=== PATIENT | female | born 1965 ===

== ENCOUNTER 2022-11-01 13:15 | Emergency (ER) | payer MEDICAID ==
[2022-11-01] MEDS ORDERED: Doxycycline 100 MG Cap ONE (13:55)
[2022-11-01 17:28] VITALS: BP 149/93; PULSE 101
== END 2022-11-01 14:00 | disposition home or self-care (01) ==
LOC: LB.ED 13:15
DX: J01.00 Acute maxillary sinusitis, unspecified (principal); Z79.899 Other long term (current) drug therapy
CPT/HCPCS: 99283; A9270

== ENCOUNTER 2022-11-02 22:07 | Emergency (ER) | payer MEDICAID ==
[2022-11-02] MEDS ORDERED: methylPREDNISolone Sodium Succinate 125 MG/2 ML SDV IM ONE (22:46)
[2022-11-02] MEDS ORDERED: methylPREDNISolone Sodium Succinate 125 MG/2 ML SDV ONE (22:47)
[2022-11-02] MEDS ORDERED: Sodium Chloride 0.9% 1,000 ML IV ONE ×2 (22:49→23:54)
[2022-11-02] MEDS ORDERED: methylPREDNISolone Sodium Succinate 125 MG/2 ML SDV IVPUSH ONE (22:49)
[2022-11-02] MEDS ORDERED: Sodium Chloride 0.9% 10 ML Syringe FLUSH PRN (23:09)
[2022-11-02] MEDS ORDERED: cefTRIAXone 2 GM in Sodium Chloride 0.9% 100 ML IV ONE (23:13)
[2022-11-02 23:14] LABS: ANION GAP 16.5 mmol/L (5.0-15.0); BUN/CREATININE RATIO 9.3 (6-25); CARBON DIOXIDE,CO2 26.5 mmol/L (21.0-32.0); CREATININE 0.75 mg/dL (0.55-1.02); EST CRCL DRUG DOSING (CG) 76.54 mL/min
[2022-11-02 23:15] LABS: BASOPHILS ABSOLUTE AUTO 0.04 K/uL (0.02-0.10); BASOPHILS PERCENT AUTO 0.2 % (0.0-0.5); EOSINOPHILS ABSOLUTE AUTO 0.09 K/uL (0.04-0.40); EOSINOPHILS PERCENT AUTO 0.5 % (1.0-5.0); HEMATOCRIT 44.8 % (37.0-47.0); HEMOGLOBIN 15.3 g/dL (11.5-16.5); LYMPHOCYTES ABSOLUTE AUTO 2.92 K/uL (1.50-4.00); LYMPHOCYTES PERCENT AUTO 15.7 % (20.0-40.0); MEAN CORPUSCULAR HGB CONC 34.2 g/dL (31.0-35.0); MEAN CORPUSCULAR VOLUME 91 fL (76-96); MONOCYTES ABSOLUTE AUTO 1.57 K/uL (0.20-0.80); MONOCYTES PERCENT AUTO 8.4 % (3.0-10.0); NEUTROPHILS PERCENT AUTO 75.2 % (45.0-70.0); PLATELET COUNT,PLT 311 K/uL (150-500); RED BLOOD CELL COUNT 4.93 M/uL (3.80-5.80); RED CELL DISTRIBUTION WIDTH 12.7 % (11.0-16.0); WHITE BLOOD CELL COUNT,WBC 18.6 K/uL (4.0-11.0)
[2022-11-02] MEDS ORDERED: cefTRIAXone 2 GM Vial ONE (23:15)
[2022-11-02] MEDS ORDERED: Azithromycin 250 MG Tab ONE (23:45)
[2022-11-02] MEDS ORDERED: Cephalexin 500 MG Cap ONE (23:45)
[2022-11-02] MEDS ORDERED: Ondansetron 4 MG/2 ML SDV IVPUSH SCH (23:45)
[2022-11-02] MEDS ORDERED: Naloxone 2 MG/2 ML Syringe IVPUSH PRN (23:51)
[2022-11-02] MEDS ORDERED: Ondansetron 4 MG/2 ML SDV ONE (23:54)
[2022-11-02] MEDS ORDERED: HYDROmorphone 2 MG/ML Syringe ONE (23:55)
[2022-11-03] MEDS: HYDROmorphone 2 MG/ML Syringe IVPUSH PRN ×2 (00:02→04:07)
[2022-11-03] MEDS ORDERED: Ketorolac 30 MG/ML SDV IVPUSH ONE (07:54)
[2022-11-03] MEDS ORDERED: Ketorolac 30 MG/ML SDV ONE (08:06)
[2022-11-03 09:17] VITALS: BP 115/70; PULSE 89
== END 2022-11-03 08:21 | disposition home or self-care (01) ==
LOC: LB.ED 22:07
DX: J03.90 Acute tonsillitis, unspecified (principal); I10 Essential (primary) hypertension; F17.210 Nicotine dependence, cigarettes, uncomplicated; E66.9 Obesity, unspecified; Z68.32 Body mass index [BMI] 32.0-32.9, adult
CPT/HCPCS: 36415; 70490; 80048; 85025; 87430; 96361; 96365; 96375; 96376; 99283-25; A9270-GY; J0696; J1170; J1885; J2405; J2930; J3490; J7030